=== PATIENT | female | born 1960 | race African-American/Black ===

== ENCOUNTER 2024-07-07 14:50 | Outpatient (CLI) | payer OTHER, BC, SELFPAY ==
--- NOTE | ~2024-07-07 | US_ITS ---
EXAMINATION: US thyroid DATE: 07/07/2024 15:44 INDICATION: Goiter. TECHNIQUE: Multiple ultrasound images of the thyroid were obtained. COMPARISON: None. FINDINGS: The right thyroid lobe measures 1.5 x 1.8 x 4.9 cm. The left thyroid lobe measures 1.5 x 1.8 x 5.3 c m. In the right thyroid lobe, there is a 10 mm predominantly solid, hypoechoic, wider than tall nodu le with irregular margin and punctate echogenic foci (TI-RADS TR5). The left thyroid lobe, there is a 5 mm mixed cystic and solid, hypoechoic nodule with smooth margin without echogenic foci (TR3). In t he left thyroid lobe, there is a 4 mm nodule. IMPRESSION: 1. Thyroid nodules. Ultrasound-guided fine-needle aspiration of the 10 mm right thyroid nodule is rec ommended. Reviewed, dictated and finalized at location A. STAPLER IMPRESSION: 1. Thyroid nodules. Ultrasound-guided fine-needle aspiration of the 10 mm right thyroid nodule is recommended.
--- OUTSIDE RECORDS SUMMARY | 2024-07-10 23:38 | XMS_ITS | CONTINUITY OF CARE DOCUMENT ---
Author Name richmond fragoso Address Unknown Organization [facility] Address [address] [address] [place] [address] Phone [phone] Care Team Providers Care Form Presser Name Role Phone Pawel Mendiola MD Unavailable [phone] LES HASSAN, SEBAS Unavailable Peterson Cardenas MD Unavailable INSURANCE PROVIDERS Payer name Policy type / Coverage type [employer] democr[employer] ID [facility] [employer] [facility] [id number] [facility] [id number] Other [id number]
== END 2024-07-07 14:51 | disposition home or self-care (01) ==
PROVIDERS: PCP Internal Medicine; Visit Provider Internal Medicine
DX: E04.2 Nontoxic multinodular goiter (principal)
CPT/HCPCS: 76536

== ENCOUNTER 2024-07-18 09:14 | Outpatient (CLI) | payer OTHER, BC, SELFPAY ==
--- NOTE | ~2024-07-18 | MM_ITS ---
EXAMINATION: MM screening devorah BI w gregory HISTORY: New baseline lower or TECHNIQUE: Craniocaudal and mediolateral oblique 3-D tomosynthesis images were obtained and synthetic 2-D images were generated. CAD analysis was submitted and interpreted. COMPARISON: No prior mammogram is available for comparison at this institution. BREAST PARENCHYMAL COMPOSITION: The breasts are heterogeneously dense, which may obscure small masses . FINDINGS: A 9 mm asymmetry is identified within the upper inner right breast for which spot compressi on followed by ultrasound is recommended. Stable parenchymal pattern without suspicious microcalcifications, architectural distortion, discrete masses or significant asymmetry. IMPRESSION: A 9 mm asymmetry is identified within the upper inner right breast for which spot compression followe d by ultrasound is recommended. BI-RADS Category 0: Incomplete, additional imaging is needed. Reviewed, dictated and finalized at location A. BOARD DESIGNER IMPRESSION: A 9 mm asymmetry is identified within the upper inner right breast for which sp ot compression followed by ultrasound is recommended. BI-RADS Category 0: Incomplete, additional imaging is needed.
== END 2024-07-18 09:15 | disposition home or self-care (01) ==
LOC: MICIMG 09:14
PROVIDERS: PCP Internal Medicine; Visit Provider Internal Medicine
DX: Z12.31 Encounter for screening mammogram for malignant neoplasm of breast (principal)
CPT/HCPCS: 77063; 77067

== ENCOUNTER 2024-09-08 16:55 | Outpatient (CLI) | payer OTHER, BC, SELFPAY ==
--- NOTE | ~2024-09-08 | XR_ITS ---
CHEST RADIOGRAPH, PA AND LATERAL CLINICAL HISTORY: Chest pain . COMPARISON: none TECHNIQUE: PA and lateral views of the chest. FINDINGS The cardiomediastinal silhouette is unremarkable. The lungs are clear. Visualized osseous structures and soft tissues are unremarkable. IMPRESSION: No focal infiltrate or effusion. Reviewed, dictated and finalized at location A. ER [employer]PER[employer]OR
--- OUTSIDE RECORDS SUMMARY | 2024-09-08 17:00 | XMS_ITS | Data Portability ---
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 Plan of Treatment Reminders Order Date Submit Date Provider Last Modified By Organization Details Last Modified Time Details Appointments Any 15 2024 08:00A M Tadeo Cardenas MD Not available Not available Not available Lab glycohemo globin, total, blood [address], [address] [place] [address], [address], 03/28/2024 09:25:03 BMP, serum or plasma [address], [address] [place] [address], [address], 03/28/2024 09:25:03 lipid panel, serum [address], [address] [place], [address], 03/28/2024 09:25:04 vitamin D, 25-hydrox y, total, serum [address], [address] [place] [address], [address], 10/21/2023 08:22:55 CMP, serum or plasma [address], [address] [place] [address], [address], 10/21/2023 08:22:55 CBC w/ auto diff [address], [address] [place], [address], 10/21/2023 08:22:56 lipid panel, serum [address], [address] [place], [address], 10/21/2023 08:22:55 Referral None recorded. Procedures fine needle aspiratio n, ultrasoun d guided, thyroid (PROC) 2024 025 [facility], [address], [facility] [address], [place], [address], 08/21/2024 12:30:41 Surgeries None recorded. Imaging US, thyroid - Please call patient to schedule. 2023 024 [email or web address] [facility], [address], [place], [address], 07/04/2024 10:27:47 MAMMO, screening , bilateral - Please call patient to schedule. 2023 024 [facility] (Mammography) , [address], [place], [address], 07/20/2024 15:53:36 DEXA 2023 024 [email or web address] [facility] (Imaging), [address], [place], [address], 08/29/2024 15:35:54 Medication Orders omeprazol e 40 mg capsule,d elayed release 2023 024 [email or web address] [facility], [address] [facility], [place], [address], 02/18/2024 13:50:51 hydrochlo rothiazid e 25 mg tablet 2023 024 [email or web address] [facility], [address] [place] [address], [address], 02/18/2024 13:50:51 losartan 50 mg tablet 2023 024 [email or web address] [facility], [address] [place] [address], [address], 02/18/2024 13:50:51 hydrochlo rothiazid e 25 mg tablet 2023 024 CORTEZ [facility], [address] [place] [address], [address], 10/07/2023 16:46:23 Patient TargetsNo targets recorded. Patient Instructions Encounter Date Encounter Id Patient Instructions Last Modified By Organization Details Last Modified Time 06/13/2024 [id number] risk assessment* [email or web address] Not availabl e 06/13/2024 12:41:51 INFLUENZA VACCIN E TD/TDAP PNEUMONIA VACCINE SHINGLES Ordered Recommend ed today, patient declined Patient will get at local pharmacy/health department MAMMOGRAM: Last Mammogram_ 04/2023 No screening necessary patient is up to date DEXA SCAN No screening necessary patient is up to date CERVICAL SCREENING/PELVIC EXAMINATION COLORECTAL SCREENING: Last Colonoscopy 02/2014 DEPRESSION SCREENING Negative BMI Overweight Approp riate Continue healthy eating & exercise NUTRITION Continue healthy eating & exercise PHYSICAL ACTIVITY Appropriate physical activity minimum of 10-20 minutes of activity that causes mild breathlessness/da y VISION No Eye exam necessary ALCOHOL USE No alcohol use Occasional/So cial Use TOBACCO USE non smoker LUNG CANCER SCREENING Non Smoker-not indicated SEXUALLY ACTIVE HEPATITIS C SCREENING Not indicated GLUCOSE SCREENING Ordered Not needed LIPID SCREENING Ordered Not needed [email or web address] Not available 06/13/2024 11:41:06 Reason for Referral None Reported. Results Created Date Observation Date Name Description Value Unit Range Abnormal Flag Note LastModifiedBy Organization Detail LastModifiedTime 10/21/19 24 10/21/2023 VITAM IN D 25-HY DROXY [id number] 51.1 NG/mL 30-100 Vitam in D Statu s: Defic ient: <20 ng/mL Insuf ficie nt: 20-29 ng/mL Suffi cient : 30-10 0 ng/mL Not Available [facility] (Lab) [address] [place], [address], 10/21/2023 21:52:02 10/21/19 24 10/21/2023 COMPR EHENS BRITTANI METAB OLIC PANEL sodium 143 mmol/ L 137-14 5 Not Available [facility] (Lab) [address] [place], [address], 10/21/2023 22:10:54 10/21/19 24 10/21/2023 COMPR EHENS BRITTANI METAB OLIC PANEL potassium 4.1 mmol/ L 3.5-5. 1 Not Available [facility] (Lab) [address] [place], [address], 10/21/2023 22:10:54 10/21/19 24 10/21/2023 COMPR EHENS BRITTANI METAB OLIC PANEL chloride 107 mmol/ L 98-107 Not Available [facility] (Lab) [address] [place], [address], 10/21/2023 22:10:54 10/21/19 24 10/21/2023 COMPR EHENS BRITTANI METAB OLIC PANEL carbon dioxide 31 mmol/ L 22-30 high Not Available [facility] (Lab) [address] [place], [address], 10/21/2023 22:10:54 10/21/19 24 10/21/2023 COMPR EHENS BRITTNAI METAB OLIC PANEL anion gap 9.1 mmol/ L 14-22 low Not Available [facility] (Lab) [address] [place], [address], 10/21/2023 22:10:54 10/21/19 24 10/21/2023 COMPR EHENS BRITTANI METAB OLIC PANEL glucose 105 mg/dL 70-99 high Not Available [facility] (Lab) [address] [place], [address], 10/21/2023 22:10:54 10/21/19 24 10/21/2023 COMPR EHENS BRITTANI METAB OLIC PANEL BUN 19 mg/dL 8-19 Not Available [facility] (Lab) [address] [place], [address], 10/21/2023 22:10:54 10/21/19 24 10/21/2023 COMPR EHENS BRITTANI METAB OLIC PANEL creatinine 1.01 mg/dL 0.66-1 .25 Not Available [facility] (Lab) [address] [facility] [place], [address], 10/21/2023 22:10:54 10/21/19 24 10/21/2023 COMPR EHENS BRITTANI METAB OLIC PANEL GFR >60 Refer ence Range : [place] ge GFR Healt hy Adult : >60 mL/mi n/1.7 3 m2 Chron ic Kidne y Disea se: 15-60 mL/mi n/1.7 3 m2 Kidne y Failu re: <15/m L/min /1.73 m2 www.n iddk. nih.g ov The MDRD study equat ion has not been valid ated in child nicho <18 years of age; pregn ant women ; the elder ly >85 years of age; or in some racia l or ethni c subgr oups, such as [facility] nics. Outsi de the valid ated matt eters , estim ated GFR is less accur ate, requi ring clini tal judgm ent on a case- by-ca se basis . Clini tal inter preta tion for other races and ages must be made by the clini anjel. The MDRD study equat ion has not been valid ated for the evalu ation of serum creat inine relat ed to nutri shirlene l statu s or medic ation usage . For perso ns <18 years of age, a pedia tric GFR calcu lator is avail able on the F websi te: https ://rosalba w.dequan delarosa.o rg/pr ofess ional s/kdo qi/gf r_cal culat or Not Available [facility] (Lab) [address] [place], [address], 10/21/2023 22:10:54 10/21/19 24 10/21/2023 COMPR EHENS BRITTANI METAB OLIC PANEL alkaline phosphatase 91 U/L 38-126 Not Available [facility] (Lab) [address] [place], [address], 10/21/2023 22:10:54 10/21/19 24 10/21/2023 COMPR EHENS BRITTANI METAB OLIC PANEL alanine aminotransfe rase 24 U/L 0-35 Not Available [facility] (Lab) [address] [place], [address], 10/21/2023 22:10:54 10/21/19 24 10/21/2023 COMPR EHENS BRITTANI METAB OLIC PANEL aspartate aminotransfe rase 32 U/L 15-37 Not Available [facility] (Lab) [address] [place], [address], 10/21/2023 22:10:54 10/21/19 24 10/21/2023 COMPR EHENS BRITTANI METAB OLIC PANEL bilirubin, total 0.40 mg/dL 0.20-1 .30 Not Available [facility] (Lab) [address] [place], [address], 10/21/2023 22:10:54 10/21/19 24 10/21/2023 COMPR EHENS BRITTANI METAB OLIC PANEL calcium 9.5 mg/dL 8.4-10 .2 Not Available [facility] (Lab) [address] [place], [address], 10/21/2023 22:10:54 10/21/19 24 10/21/2023 COMPR EHENS BRITTANI METAB OLIC PANEL total protein 7.0 g/dL 6.3-8. 2 Not Available [facility] (Lab) [address] [place], [address], 10/21/2023 22:10:54 10/21/19 24 10/21/2023 COMPR EHENS BRITTANI METAB OLIC PANEL albumin 4.2 g/dL 3.4-5. 0 Not Available [facility] (Lab) [address] [place], [address], 10/21/2023 22:10:54 10/21/19 24 10/21/2023 COMPR EHENS BRITTANI METAB OLIC PANEL globulin 2.8 g/dL 2.6-4. 2 Not Available [facility] (Lab) [address] [place], [address], 10/21/2023 22:10:54 10/21/19 24 10/21/2023 COMPR EHENS BRITTANI METAB OLIC PANEL A/G ratio 1.5 ratio 1.0-2. 0 Not Available [facility] (Lab) [address] [place], [address], 10/21/2023 22:10:54 10/21/19 24 10/21/2023 LIPID PANEL cholesterol 240 mg/dL 140-19 9 high [facility] NSUS RECOM MENDA TION FOR ARSENIO STERO L: ADULT CHILD LOW RISK: <200 <170 BORDE RLINE : <200- 239 ----- HIGH RISK: >240 >200 Not Available [facility] (Lab) [address] [place], [address], 10/21/2023 22:11:04 10/21/19 24 10/21/2023 LIPID PANEL triglyceride s 52 mg/dL 0-150 [facility] NSUS REPOR T RECOM MENDA TION FOR TRIGL YCERI ILAN: ADULT CHILD LOW RISK: <150 ----- BODER LINE: 150-1 99 ----- HIGH RISK: >200 ----- Not Available [facility] (Lab) [address] [place], [address], 10/21/2023 22:11:04 10/21/19 24 10/21/2023 LIPID PANEL HDL cholesterol 81 mg/dL 40- Not Available [facility] (Lab) [address] [place], [address], 10/21/2023 22:11:04 10/21/19 24 10/21/2023 LIPID PANEL LDL cholesterol, calculated 149 mg/dL 0-130 high [facility] NSUS REPOR T RECOM MENDA TIONS FOR LDL: ADULT CHILD LOW RISK <130 <110 (OPTI MAL LDL) <100 ----- BORDE RLINE : 130-1 59 ----- HIGH RISK: >160 >130 A TRIGL YCERI DE RESUL T >400 INVAL IDATE S THE CALCU LATIO N FOR LDL FRACT IONAT ION - THE LDL RESUL T WILL NOT BE REPOR EDGARDO. Not Available [facility] (Lab) [address] [place], [address], 10/21/2023 22:11:04 10/21/19 24 10/21/2023 CBC/C OMPLE TE BLD COUNT W/DIF F white blood cells 3.2 x10'3 /uL 4.2-10 .8 low Not Available [facility] (Lab) [address] [place], [address], 10/21/2023 23:39:47 10/21/19 24 10/21/2023 CBC/C OMPLE TE BLD COUNT W/DIF F red blood cells 4.62 x10'6 /uL 3.80-5 .20 Not Available [facility] (Lab) [address] [place], [address], 10/21/2023 23:39:47 10/21/19 24 10/21/2023 CBC/C OMPLE TE BLD COUNT W/DIF F hemoglobin 13.1 g/dL 12.0-1 5.6 Not Available [facility] (Lab) [address] [place], [address], 10/21/2023 23:39:47 10/21/19 24 10/21/2023 CBC/C OMPLE TE BLD COUNT W/DIF F hematocrit 40.4 % 35.7-4 5.7 Not Available [facility] (Lab) [address] [place], [address], 10/21/2023 23:39:47 10/21/19 24 10/21/2023 CBC/C OMPLE TE BLD COUNT W/DIF F mean red cell volume 87.4 fL 82.0-9 9.0 Not Available [facility] (Lab) [address] [place], [address], 10/21/2023 23:39:47 10/21/19 24 10/21/2023 CBC/C OMPLE TE BLD COUNT W/DIF F mean red cell hemoglobin 28.4 pg 27.0-3 3.0 Not Available [facility] (Lab) [address] [place], [address], 10/21/2023 23:39:47 10/21/19 24 10/21/2023 CBC/C OMPLE TE BLD COUNT W/DIF F mean RBC HGB concentratio n 32.4 g/dL 31.0-3 6.0 Not Available [facility] (Lab) [address] [place], [address], 10/21/2023 23:39:47 10/21/19 24 10/21/2023 CBC/C OMPLE TE BLD COUNT W/DIF F red cell distribution width 13.2 % 11.8-1 5.5 Not Available [facility] (Lab) [address] [place], [address], 10/21/2023 23:39:47 10/21/19 24 10/21/2023 CBC/C OMPLE TE BLD COUNT W/DIF F platelets 207 x10'3 /uL 150-40 0 Not Available [facility] (Lab) [address] [place], [address], 10/21/2023 23:39:47 10/21/19 24 10/21/2023 CBC/C OMPLE TE BLD COUNT W/DIF F mean platelet volume 11.5 fL 9.0-12 .4 Not Available [facility] (Lab) [address] [place], [address], 10/21/2023 23:39:47 10/21/19 24 10/21/2023 CBC/C OMPLE TE BLD COUNT W/DIF F neutrophils 32.8 % 39.0-7 2.0 low Not Available [facility] (Lab) [address] [place], [address], 10/21/2023 23:39:47 10/21/19 24 10/21/2023 CBC/C OMPLE TE BLD COUNT W/DIF F lymphocytes 47.8 % 16.0-4 7.0 high Not Available [facility] (Lab) [address] [place], [address], 10/21/2023 23:39:47 10/21/19 24 10/21/2023 CBC/C OMPLE TE BLD COUNT W/DIF F monocytes 11.7 % 5.0-12 .0 Not Available [facility] (Lab) [address] [place], [address], 10/21/2023 23:39:47 10/21/19 24 10/21/2023 CBC/C OMPLE TE BLD COUNT W/DIF F eosinophils 7.1 % 1.0-7. 0 high Not Available [facility] (Lab) [address] [place], [address], 10/21/2023 23:39:47 10/21/19 24 10/21/2023 CBC/C OMPLE TE BLD COUNT W/DIF F basophils 0.3 % 0.0-2. 0 Not Available [facility] (Lab) [address] [place], [address], 10/21/2023 23:39:47 10/21/19 24 10/21/2023 CBC/C OMPLE TE BLD COUNT W/DIF F immature granulocytes 0.3 % 0.00-0 .50 Not Available [facility] (Lab) [address] [place], [address], 10/21/2023 23:39:47 10/21/19 24 10/21/2023 CBC/C OMPLE TE BLD COUNT W/DIF F neutrophils, absolute count 1.06 x10'3 /uL 1.5-8. 0 low Not Available [facility] (Lab) [address] [place], [address], 10/21/2023 23:39:47 10/21/19 24 10/21/2023 CBC/C OMPLE TE BLD COUNT W/DIF F lymphocytes, absolute count 1.55 x10'3 /uL 1.07-3 .43 Not Available [facility] (Lab) [address] [place], [address], 10/21/2023 23:39:47 10/21/19 24 10/21/2023 CBC/C OMPLE TE BLD COUNT W/DIF F monocytes, absolute count 0.38 x10'3 /uL 0.29-0 .99 Not Available [facility] (Lab) [address] [place], [address], 10/21/2023 23:39:47 10/21/19 24 10/21/2023 CBC/C OMPLE TE BLD COUNT W/DIF F eosinophils, absolute count 0.23 x10'3 /uL 0.02-0 .53 Not Available [facility] (Lab) [address] [place], [address], 10/21/2023 23:39:47 10/21/19 24 10/21/2023 CBC/C OMPLE TE BLD COUNT W/DIF F basophils, absolute count 0.01 x10'3 /uL 0.01-0 .08 Not Available [facility] (Lab) [address] [place], [address], 10/21/2023 23:39:47 10/21/19 24 10/21/2023 CBC/C OMPLE TE BLD COUNT W/DIF F immature granulocytes ,absolute 0.01 x10'3 /uL 0.00-0 .05 Not Available [facility] (Lab) [address] [place], [address], 10/21/2023 23:39:47 10/21/19 24 10/21/2023 CBC/C OMPLE TE BLD COUNT W/DIF F nucleated red blood cells 0.0 % -0 Not Available [facility] (Lab) [address] [place], [address], 10/21/2023 23:39:47 10/21/19 24 10/21/2023 CBC/C OMPLE TE BLD COUNT W/DIF F NRBC# 0.00 x10'3 /uL Not Available [facility] (Lab) [address] [place], [address], 10/21/2023 23:39:47 06/08/20 24 06/08/2024 LIPID PANEL cholesterol 212 mg/dL 140-19 9 high [facility] NSUS RECOM MENDA TION FOR ARSENIO STERO L: ADULT CHILD LOW RISK: <200 <170 BORDE RLINE : <200- 239 ----- HIGH RISK: >240 >200 Not Available [facility] (Lab) [address] [place], [address], 06/08/2024 19:49:06 06/08/20 24 06/08/2024 LIPID PANEL triglyceride s 70 mg/dL 0-150 [facility] NSUS REPOR T RECOM MENDA TION FOR TRIGL YCERI ILAN: ADULT CHILD LOW RISK: <150 ----- BODER LINE: 150-1 99 ----- HIGH RISK: >200 ----- Not Available [facility] (Lab) [address] [place], [address], 06/08/2024 19:49:06 06/08/2006/08/2024 LIPID PANEL HDL cholesterol 67 mg/dL 40- Not Available [facility] (Lab) [address] [place], [address], 06/08/2024 19:49:06 06/08/20 24 06/08/2024 LIPID PANEL LDL cholesterol, calculated 131 mg/dL 0-130 high [facility] NSUS REPOR T RECOM MENDA TIONS FOR LDL: ADULT CHILD LOW RISK <130 <110 (OPTI MAL LDL) <100 ----- BORDE RLINE : 130-1 59 ----- HIGH RISK: >160 >130 A TRIGL YCERI DE RESUL T >400 INVAL IDATE S THE CALCU LATIO N FOR LDL FRACT IONAT ION - THE LDL RESUL T WILL NOT BE REPOR EDGARDO. Not Available [facility] (Lab) [address] [place], [address], 06/08/2024 19:49:06 06/08/20 24 06/08/2024 BASIC METAB OLIC PANEL sodium 137 mmol/ L 137-14 5 Not Available [facility] (Lab) [address] [place], [address], 06/08/2024 19:49:16 06/08/2006/08/2024 BASIC METAB OLIC PANEL potassium 4.1 mmol/ L 3.5-5. 1 Not Available [facility] (Lab) [address] [place], [address], 06/08/2024 19:49:16 06/08/2006/08/2024 BASIC METAB OLIC PANEL chloride 103 mmol/ L 98-107 Not Available [facility] (Lab) [address] [place], [address], 06/08/2024 19:49:16 06/08/20 24 06/08/2024 BASIC METAB OLIC PANEL carbon dioxide 31 mmol/ L 22-30 high Not Available [facility] (Lab) [address] [place], [address], 06/08/2024 19:49:16 06/08/20 24 06/08/2024 BASIC METAB OLIC PANEL anion gap 7.1 mmol/ L 14-22 low Not Available [facility] (Lab) [address] [place], [address], 06/08/2024 19:49:16 06/08/20 24 06/08/2024 BASIC METAB OLIC PANEL glucose 90 mg/dL 70-99 Not Available [facility] (Lab) [address] [place], [address], 06/08/2024 19:49:16 06/08/20 24 06/08/2024 BASIC METAB OLIC PANEL BUN 15 mg/dL 8-19 Not Available [facility] (Lab) [address] [place], [address], 06/08/2024 19:49:16 06/08/20 24 06/08/2024 BASIC METAB OLIC PANEL creatinine 1.00 mg/dL 0.66-1 .25 Not Available [facility] (Lab) [address] [place], [address], 06/08/2024 19:49:16 06/08/20 24 06/08/2024 BASIC METAB OLIC PANEL GFR >60 Refer ence Range : [place] ge GFR Healt hy Adult : >60 mL/mi n/1.7 3 m2 Chron ic Kidne y Disea se: 15-60 mL/mi n/1.7 3 m2 Kidne y Failu re: <15/m L/min /1.73 m2 www.n iddk. nih.g ov The MDRD study equat ion has not been valid ated in child nicho <18 years of age; pregn ant women ; the elder ly >85 years of age; or in some racia l or ethni c subgr oups, such as Hispa nics. Outsi de the valid ated matt eters , estim ated GFR is less accur ate, requi ring clini tal judgm ent on a case- by-ca se basis . Clini tal inter preta tion for other races and ages must be made by the clini anjel. The MDRD study equat ion has not been valid ated for the evalu ation of serum creat inine relat ed to nutri shirlene l statu s or medic ation usage . For perso ns <18 years of age, a pedia tric GFR calcu lator is avail able on the F websi te: https ://ww w.kid [place].o rg/pr ofess ional s/kdo qi/gf r_cal culat or Not Available [facility] (Lab) [address] [place], [address], 06/08/2024 19:49:16 06/08/2006/08/2024 BASIC METAB OLIC PANEL calcium 9.9 mg/dL 8.4-10 .2 Not Available [facility] (Lab) [address] [place], [address], 06/08/2024 19:49:16 06/08/20 24 06/08/2024 HEMOG LOBIN A1C HA1C 6.0 % 4.0-6. 0 Diabe erika Scree fermin Crite rm: <5.7% Consi stent with absen ce of diabe erika 5.7-6 .4% Consi stent with incre ased risk for diabe erika (pred iabet es) >OR=6 .5% Consi stent with diabe erika REFER ENCE: Diabe erika Care 2016, 39(Ford ppl.1 ):s13 -s22 Not Available [facility] (Lab) [address] [place], [address], 06/08/2024 19:51:52 07/11/20 24 07/07/2024 US, thyro id No observ ation record ed. [email or web address] [facility] [address], [place], [address], 08/18/2024 16:38:35 07/20/20 24 07/18/2024 MAMMO , scree fermin, bilat eral No observ ation record ed. [email or web address] [facility] [address], [place], [address], 08/18/2024 17:27:47 07/20/20 24 07/18/2024 MAMMO , scree fermin, bilat eral No observ ation record ed. [address] (Mammography) [address], [place], [address], 08/09/2024 10:57:55 08/07/19 25 07/18/2024 MAMMO , scree fermin, bilat eral No observ ation record ed. [email or web address] [facility] [address], [place], [address], 08/18/2024 16:42:40 Result Notes None recorded. Problems Name Problem SNOMED Code Status Onset Date Resolution Date Notes Provider Name and Address Organization Details Recorded Time Menopausal syndrome 875773190 Active Not Available [facility] 3 06:14:41 Cellulitis 033950096 Completed Not Available [facility] 3 06:14:41 Cellulitis and abscess of trunk 216681993 Completed Not Available [facility] 3 06:14:42 Gastroesop hageal reflux disease 916559805 Active 2019 Not Available [facility] 3 06:14:42 Screening mammograph y Completed 202101/28/2022 Not Available [facility] 3 06:14:42 Adult health examinatio n Active 2021 Not Available [facility] 3 06:14:42 Chest pain 00449391 Completed Not Available [facility] 3 06:14:42 Bronchitis 78617264 Completed Not Available [facility] 3 06:14:42 Vitamin D deficiency 37678487 Active Not Available [facility] 3 06:14:42 Goiter 8975560 Active 2021 Not Available [facility] 3 06:14:42 Hyperlipid emia 56929048 Active 2019 Not Available [facility] 3 06:14:42 Essential hypertensi on 10919258 Active 2019 Not Available [facility] 3 06:14:42 Gastroesop hageal reflux disease without esophagiti s 167576564 Active 2023 Tadeo Cardenas MD [address], [address], [place], [address] , [place] [facility] 4 11:54:20 Chest wall pain 239214948 Active 2023 Tadeo Cardenas MD [address], [address], [place], [address] , [place] - [facility] 4 11:58:47 Hyperglyce naresh 46232430 Active 2023 Tadeo Cardenas MD [address], [address], [place], [address] , [place] [employer] - [facility] 4 15:57:34 Thyroid nodule 119721542 Active 2024 Izabel Mejia LPN null, [place] - [facility] 5 10:58:14 Mammograph y abnormal 016270304 Active 2024 Izabel Mejia LPN null, [employer] [facility] 5 11:02:00 Problem Notes None recorded. Procedures Surgical History Date Name Laterality Status Provider Name and Address Organization Details Recorded Time section completed Not Available [facility] 09/23/2022 06:08:21 tonsillectomy completed Not Available [facility] 09/23/2022 06:08:21 cholecystectomy completed Not Available [facility] 09/23/2022 06:08:21 Imaging Results Imaging Date Name Status LastModified by Organiz ation Details LastModified Time 07/07/2024 US, thyroid completed [email or web address] [facility] [address], [address], 08/18/2024 16:38:35 07/18/2024 MAMMO, screening, bilateral completed [email or web address] [facility] [address], [place], [address], 08/18/2024 17:27:47 07/18/2024 MAMMO, screening, bilateral completed [address] (Mammography) [address], [place], [address], 08/09/2024 10:57:55 07/18/2024 MAMMO, screening, bilateral completed [email or web address] [facility] [address], [place], [address], 08/18/2024 16:42:40 Procedure Notes None recorded. Medical Equipment None Reported. Allergies Allergen ID Allergen Name Allergen Category Reaction Reaction Severity Criticality Documentation Date Start Date Code Code System Note Provider Name and Address Organization Details Recorded Time 82388 lisinopri l medicatio n cough Not available Not available 09/23/2022 00232 RxNorm Not Available [facility] 06:20:32 Medications Name Sig Start Date Stop Date Status Note LastModified by Organization Details LastModified Time losartan 50 mg tablet TAKE 1 TABLET DAILY 2024 active Not Available Not Available Not Avai lable lisinopril 20 mg-hydrochl orothiazide 12.5 mg tablet TAKE 1 TABLET BY MOUTH ONCE DAILY active Not Available Not Available No t Available azithromyci n 250 mg tablet Take 2 TABLET EVERY DAY by oral route for 1 day. then 1 tab a day for 4 days active Not Available Not Available No t Available fluoxetine 10 mg tablet Take 1 tablet every day by oral route. 01/03 completed Not Available Not Available Not Available sulfamethox azole 800 mg-trimetho prim 160 mg tablet TAKE 1 TABLET BY MOUTH EVERY 12 HOURS FOR 7 DAYS 09/22 completed Not Available Not Available Not Available omeprazole 40 mg capsule,del ayed release Take 1 capsule every day by oral route as needed for 30 days. active Not Available Not Available No t Available hydrocortis one acetate 25 mg rectal suppository 01/08 completed Not Available Not Available Not Available oxycodone-a cetaminophe n 5 mg-325 mg tablet 05/11 completed Not Available Not Available Not Available ofloxacin 0.3 % ear drops INSTILL 10 DROPS INTO AFFECTED EAR(S) BY OTIC ROUTE ONCE DAILY active Not Available Not Available No t Available cephalexin 500 mg capsule 01/08 completed Not Available Not Available Not Available aspirin 81 mg chewable tablet CHEW AND SWALLOW 1 TABLET BY MOUTH EVERY DAY active Not Available Not Available No t Available hydrochloro thiazide 25 mg tablet TAKE 1 TABLET BY MOUTH DAILY IN THE MORNING active Not Available Not Available No t Available ibuprofen 600 mg tablet 01/08 completed Not Available Not Available Not Available Vitamin D2 1,250 mcg (50,000 unit) capsule Take 1 capsule every week by oral route for 90 days. 03/09 completed Not Available Not Available Not Available Vitamin B-12 1,000 mcg tablet Take 1 tablet every day by oral route. 2018 active Not Available Not Available Not Avai lable Pneumovax-2 3 25 mcg/0.5 mL injection syringe ADM 0.5ML IM UTD active Not Available Not Available No t Available Vitamin D3 25 mcg (1,000 unit) capsule Take 1 capsule every day by oral route. 2018 active Not Available Not Available Not Avai lable Boostrix Tdap 2.5 Lf unit-8 mcg-5 Lf/0.5 mL intramuscul ar syringe ADM 0.5ML IM UTD active Not Available Not Available No t Available Vitamin B1 03/09 completed Not Available Not Available Not Available ProAir HFA 90 mcg/actuati on aerosol inhaler Inhale 2 puffs every 4 hours by inhalatio n route as needed. active Not Available Not Available No t Available Fluvirin 4734-3899 45 mcg (15 mcg x 3)/0.5 mL intramuscul ar suspension active Not Available Not Available N ot Available Fluvirin 8189-7724 45 mcg (15 mcg x 3)/0.5 mL intramuscul ar suspension ADM 0.5ML IM UTD active Not Available Not Available No t Available Fluvirin (PF) 45 mcg (15 mcg x 3)/0.5 mL intramuscul ar syringe ADM 0.5ML IM UTD 01/03 completed Not Available Not Available Not Available Anusol-HC 2.5 % topical cream APPLY A THIN LAYER TO THE AFFECTED AREA(S) BY TOPICAL ROUTE 3 TIMES PER DAY 01/03 completed Not Available Not Available Not Available Proctosol HC 2.5 % topical cream perineal applicator 01/03 completed Not Available Not Available Not Available Fluvirin (PF) 45 mcg(15 mcg x3)/0.5 mL intramuscul ar syringe ADM 0.5ML IM UTD 03/09 completed Not Available Not Available Not Available Fluarix Quad (PF) 60 mcg (15 mcg x 4)/0.5 mL IM syringe ADM 0.5ML IM UTD 03/09 completed Not Available Not Available Not Available ID NOW COVID-19 Test Kit USE DIRECTED 03/17 completed Not Available Not Available Not Available Vitals Date Recorded Body height Body mass index (BMI) Body weight Body temperature Heart rate Oxygen saturation Oxygen saturation in Arterial blood by Pulse oximetry Systolic blood pressure Diastolic blood pressure Provider Name and Address Organization Details Last Updated DateTime 4 162.56 cm 25.7 kg/m2 84847.8 6 g 98.4 [degF] 81 /min 99 % 99 % 112 mm[Hg] 68 mm[Hg] Citlaly palumbo CMA [place] [facility] [employer] 4 16:17:15 Date Recorded Body height Body mass index (BMI) Body weight Heart rate Oxygen saturation Oxygen saturation in Arterial blood by Pulse oximetry Systolic blood pressure Diastolic blood pressure Provider Name and Address Organization Details Last Updated DateTime 4 162.56 cm 26.2 kg/m2 72665.5 5 g 63 /min 99 % 99 % 124 mm[Hg] 70 mm[Hg] GIL Bennett [employer] [facility] [employer] [facility] 4 11:34:20 Date Recorded Body height Body mass index (BMI) Body weight Body temperature Heart rate Oxygen saturation Oxygen saturation in Arterial blood by Pulse oximetry Systolic blood pressure Diastolic blood pressure Provider Name and Address Organization Details Last Updated DateTime 4 162.56 cm 26.2 kg/m2 97325.5 5 g 98.7 [degF] 64 /min 98 % 98 % 122 mm[Hg] 72 mm[Hg] Winifred Camarena [facility] [employer] [facility] 4 15:39:40 Date Recorded Body weight Body temperature Heart rate Oxygen saturation Oxygen saturation in Arterial blood by Pulse oximetry Body mass index (BMI) Body height Systolic blood pressure Diastolic blood pressure Provider Name and Address Organization Details Last Updated DateTime 4 42085.0 4 g 97.4 [degF] 66 /min 98 % 98 % 26.1 kg/m2 162.56 cm 114 mm[Hg] 70 mm[Hg] GIL Diaz [facility] [employer] [facility] 4 09:22:36 Date Recorded Body height Body mass index (BMI) Body weight Body temperature Provider Name and Address Organization Details Last Updated DateTime 08/21/2024 162.56 cm 26.1 kg/m2 91861.76 g 97.8 [degF] Erika Chavez RN [facility] [email or web address] [facility] 08/21/2024 11:40:01 Social History Question Answer Notes LastModified by Organizat ion Details LastModified Time Tobacco Smoking Status Never Smoker Not Available [employer] 09/23/2022 06:08:00 Do You Have An Advance Directive? No [id number] Information not available 09/23/2022 What Is Your Level Of Alcohol Consumption? Occasional MIGRATION.21865 [id number] Information not available 09/23/2022 Do You Wear A Helmet When Biking? No MIGRATION.93258 [id number] Information not available 09/23/2022 What Is Your Level Of Caffeine Consumption? Moderate MIGRATION.11226 32047 Information not available 09/23/2022 In The 14 Days Before Symptom Onset, Have You Had Close Contact With A Laboratory-confi rmed COVID-19 While That Case Was Ill? No MIGRATION.18445 [id number] Information not available 09/23/2022 In The 14 Days Before Symptom Onset, Have You Had Close Contact With A Person Who Is Under Investigation For COVID-19 While That Person Was Ill? No MIGRATION.67868 07119 Information not available 09/23/2022 What Type Of Diet Are You Following? REGULAR MIGRATION.34880 93906 Information not available 09/23/2022 What Is The Highest Grade Or Level Of School You Have Completed Or The Highest Degree You Have Received? 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 3 MIGRATION.89390 10671 Information not available 09/23/2022 Have There Been Any Changes To Your Family Or Social Situation? No MIGRATION.51628 05623 Information not available 09/23/2022 Do You Use Insect Repellent Routinely? Yes MIGRATION.40443 51506 Information not available 09/23/2022 Where [facility] You Live[facility] MIGRATION.98826 41121 Information not available 09/23/2022 Do You Have A Medical Power Of Sailing Master? No MIGRATION.73296 13730 Information not available 09/23/2022 What Was The Date Of Your Most Recent Tobacco Screening? 06/13/2024 [email or web address] Information not available 06/13/2024 Have You Ever Been Counseled For Unhealthy Alcohol Use? No MIGRATION.46193 61212 Information not available 09/23/2022 Do You Have Any Pets? No MIGRATION.51657 13804 Information not available 09/23/2022 What Is Your Relationship Status? MIGRATION.10616 69746 Information not available 09/23/2022 Do You Use Your Seat Belt Or Car Seat Routinely? Yes MIGRATION.28565 48315 Information not available 09/23/2022 Do You Have Smoke And Carbon Monoxide Detectors In Your Home? Yes MIGRATION.46789 45523 Information not available 09/23/2022 Are You Passively Exposed To Smoke? No MIGRATION.68634 06714 Information not available 09/23/2022 Are There Any Smokers In Your House? No MIGRATION.60730 52938 Information not available 09/23/2022 Do You Feel Stressed (tense, Restless, Nervous, Or Anxious, Or Unable To Sleep At Night)? [id number] MIGRATION.74378 93755 Information not available 09/23/2022 Do You Use Any Illicit Or Recreational Drugs? No MIGRATION.12431 47834 Information not available 09/23/2022 Do You Use Sunscreen Routinely? Yes MIGRATION.84485 81470 Information not available 09/23/2022 Has Tobacco Cessation Counseling Been Provided? No MIGRATION.31576 92823 Information not available 09/23/2022 Have You Recently Traveled Abroad? No MIGRATION.56424 61380 Information not available 09/23/2022 Do You Have Any Dietary Restrictions? No MIGRATION.75899 51638 Information not available 09/23/2022 Do You Or Have You Ever Used Any Other Forms Of Tobacco Or Nicotine? No MIGRATION.55284 01440 Information not available 09/23/2022 Sex: Female Functional Status Question Answer Note LastModified by Organizat ion Details LastModified Time What is your exercise level? Moderate rollar skate, walk, run and bike riding MIGRATION.[id number] Information not available 09/23/2022 Mental Status None recorded. Family History Relationship Description Onset Age of this Age Resolved Age Notes LastModified by Organization Details LastModified Time Maternal Grandmother Heart disease MIGRATION.158 [id number] Not available 09/23/2022 06:08:25 Father Essential hypertension MIGRATION.293 [id number] Not available 09/23/2022 06:08:25 Father Diabetes mellitus MIGRATION.006 [id number] Not available 09/23/2022 06:08:25 Mother Essential hypertension MIGRATION.261 [id number] Not available 09/23/2022 06:08:25 Mother Diabetes mellitus border line MIGRATION.634 [id number] Not available 09/23/2022 06:08:25 Sister Essential hypertension MIGRATION.416 [id number] Not available 09/23/2022 06:08:25 Brother Essential hypertension MIGRATION.809 [id number] Not available 09/23/2022 06:08:25 Maternal Uncle Malignant neoplastic disease Prosta te MIGRATION.839 [id number] Not available 09/23/2022 06:08:25 Paternal Aunt Malignant neoplastic disease Breast MIGRATION.975 [id number] Not available 09/23/2022 06:08:25 Maternal Aunt Malignant neoplastic disease Uterin e MIGRATION.307 [id number] Not available 09/23/2022 06:08:25 Notes:SON: THYROID PROBLEM F IRST COUSIN: THYROID CANCER Medical History Condition Response GERD/NAUSEA Y HYPERTENSION Y Gynecological HistoryNo gynecological history recorded. Obstetrics History GPAL:G 0 P 0 0 0 0 Immunizations Vaccine Type Date Status Note Provider Nam e and Address Organization Details Recorded Time COVID-19, mRNA, LNP-S, PF, 100 mcg/0.5mL dose or 50 mcg/0.25mL dose 1 completed Citlaly Cleveland CMA null, [facility] 10/07/2023 16:17:25 COVID-19, mRNA, LNP-S, PF, 100 mcg/0.5mL dose or 50 mcg/0.25mL dose 1 completed Citlaly Cleveland CMA null, [facility] 10/07/2023 16:17:25 Influenza, split virus, trivalent, preservative 6 completed Citlaly Cleveland CMA null, [facility] 10/07/2023 16:17:25 Influenza, high-dose, trivalent, PF 4 completed Citlaly Cleveland CMA null, [facility] 10/07/2023 16:17:25 COVID-19, mRNA, LNP-S, PF, 30 mcg/0.3 mL dose 1 completed Citlaly Cleveland CMA null, [facility] 10/07/2023 16:17:25 Influenza, split virus, quadrivalent, preservative 8 completed Citlaly Cleveland CMA null, [facility] 10/07/2023 16:17:25 Influenza, split virus, quadrivalent, preservative 7 completed Citlaly Cleveland CMA null, [facility] 10/07/2023 16:17:25 Influenza, high-dose, trivalent, PF 5 completed Citlaly Cleveland CMA null, [facility] 10/07/2023 16:17:25 pneumococcal polysaccharide PPV23 5 completed Citlaly Cleveland CMA null, [facility] 10/07/2023 16:17:25 Tdap 5 completed Citlaly Cleveland [employer] null, [facility] 10/07/2023 16:17:25 Influenza, split virus, quadrivalent, PF 2 completed Not Available [facility] 09/23/2022 06:20:25 Past Encounters Encounter ID Performer Location Encounter Start Date Encounter Closed Date Diagnosis/Indication Diagnosis SNOMED-CT Code Diagnosis ICD10 Code Diagnosis Note [id number] [facility] [address] [place] [address] 03/05/2021 00:00:00 03/05/2021 15:25:47 [id number] [facility] [address] [place] [address] 03/17/2021 00:00:00 03/17/2021 10:11:05 [id number] [facility] [address] [facility] [place] [address] 10/01/2021 00:00:00 10/01/2021 10:43:29 [id number] [facility] [place] [id number] [facility] [place] [address] 02/03/2022 00:00:00 02/03/2022 11:24:08 [id number] [facility] [address] [place] [address] 03/23/2022 00:00:00 03/23/2022 10:28:53 [id number] [facility] [address] [facility] [facility] [place] [address] 06/05/2022 00:00:00 06/05/2022 11:58:10 [id number] Tadeo Cardenas MD [facility] [place] [id number] [facility] [place] [address] 10/06/2022 16:25:31 10/06/2022 17:08:18 Essential hypertension 17204573 I10 under control Hyperlipidemia 18852290 E78.5 advised to watch diet Adult heal th examination 688969487 Z00.00 Mammogram, - 04/16Cojay jay cherry, 2014, nl next in 10 yrsDexa- ne umovax- 05/23/2015 FLU- 2018COVID- 09/30/2020 , 10/21/2020 Vitamin D deficiency 347 02644 E55.9 otc Gastroesop hageal reflux disease 850694342 K21.9 meds help as needed Goiter 2498344 E04.9 NEEDS F/U ULTRA SOUND Depression screening 171 401691 Z13.31 neg Body mass index 25-29 - overweight 428469326 Z68.26 [id number] Tadeo Cardenas MD [facility] Internal Med [facility] [address] [facility] [place] [address] 02/05/2023 11:21:16 02/05/2023 11:48:48 Essential hypertension 83734736 I10 under control Hyperlipidemia 65392194 E78.5 advised to keep watching diet, getting better Adult heal th examination 593605289 Z00.00 Mammogram, - 04/16Colono scopy, 2013, nl next in 10 yrsDexa- ne umovax- 05/23/2015 FLU- 2018COVID- 09/30/2020 , 10/21/2020 Vitamin D deficiency 347 17488 E55.9 otc , labs good Gastroesop hageal reflux disease 821961460 K21.9 meds help as needed Goiter 3381092 E04.9 needs ultra sound in a year Screening mammography 24 898073 Z12.31 [id number] Tadeo Cardenas MD [facility] Internal [facility] [address] [facility] [place] [address] 06/09/2023 15:50:44 06/09/2023 16:42:24 Essential hypertension 54297220 I10 under control Hyperlipidemia 83235975 E78.5 advised to keep watching diet, getting better Adult heal th examination 753839872 Z00.00 Mammogram, - 05/05/2023 Colonoscop y, 2013, nl next in 10 yrsDexa- ne umovax- 05/23/2015 [facility]- 09/30/2020 , 10/21/2020 Vitamin D deficiency 347 74133 E55.9 otc , Gastroesop hageal reflux disease 495668217 K21.9 meds help as needed Goiter 2896029 E04.9 needs ultra sound in a year ( 11/16 ) [id number] Tadeo Cardenas MD [facility] Internal [facility] [address] [facility] [place] [address] 10/07/2023 15:50:53 10/07/2023 17:02:32 Essential hypertension 69422849 I10 under control Hyperlipidemia 37506064 E78.5 advised to keep watching diet, getting better Adult heal th examination 462280385 Z00.00 Mammogram, - 05/05/2023 Colonoscop y, 2013, nl next in 10 yrsDexa- 2Pne umovax- 05/23/2015 [facility]- 09/30/2020 , 10/21/2020 Vitamin D deficiency 347 62025 E55.9 otc , Gastroesop hageal reflux disease 791730278 K21.9 meds help as needed Goiter 0414796 E04.9 needs ultra sound next time [id number] Tadeo Cardenas MD [facility] Internal [address] [facility] [place] [address] 01/20/2024 11:26:55 01/20/2024 11:59:27 Gastroesophageal reflux disease without esophagitis 006966113 K21.9 KEEP TAKING OMEPRAZOLE Chest wall pain 58252874 6 R07.89 discussed that if pain changes, then call us [id number] Tadeo Cardenas MD [facility] Internal [address] [facility] [place] [address] 02/17/2024 15:29:55 02/17/2024 16:02:55 Essential hypertension 23489843 I10 under control Hyperlipidemia 61629052 E78.5 advised to keep watching diet, labs next time Adult heal th examination 260894970 Z00.00 Mammogram, - 05/05/2023 Colonoscop y, 2013, nl next in 10 yrsDexa- 2Pne umovax- 05/23/2015 [facility]- 09/30/2020 , 10/21/2020 Vitamin D deficiency 347 60001 E55.9 otc , Gastroesop hageal reflux disease 108035043 K21.9 meds help as needed Goiter 2672510 E04.9 needs ultra sound next time Hyperglycemia 56724019 R 73.9 watching diet [id number] Tadeo Cardenas MD [facility] [address] [place] [address] 06/13/2024 09:08:38 06/13/2024 10:11:45 Essential hypertension 38886239 I10 under control Hyperlipidemia 44215990 E78.5 getting better without meds Adult heal th examination 916455092 Z00.00 Mammogram, - 05/05/2023 Colonoscop y, 2014, nl, now due, wants to waitDexa- ne umovax- 05/23/2015 , 05/18/24FL U- 05/18/24 (reginas )COVID- 09/30/2020 , 10/21/2020 Vitamin D deficiency 347 09233 E55.9 otc , Gastroesop hageal reflux disease 916301514 K21.9 meds help Goiter 9877888 E04.9 needs ultra sound Hyperglycemia 13834393 R 73.9 watching diet Screening mammography 24 802657 Z12.31 Screening for osteoporosis 847662269 Z13.820 Depression screening 171 607089 Z13.31 neg Normal bod y mass index 94848254 Z68.26 [id number] Pj Hardy MD [facility] E[facility] [place] [address] [place] [address] 08/21/2024 11:29:26 08/22/2024 11:08:04 Thyroid nodule 388998549 E04.1 Health Concerns Section Related Observation LastModified by Organization Detai ls LastModified Time None Recorded Concern Status LastModified by Organization Details LastModified Time None Recorded Advance Directives Directive N: Payers Encounter Date Sequence Insurance Name Policy Number Policy Saldaña Covered Member ID Saldaña Member ID Guarantor Name 10/07/2023 1 [employer] HEALTHCARE - CHOICE PLUS [id number] Windy Ross [id number] Windy Ross 10/07/2023 2 [employer] [id number] Matthew Ross [id number] Windy Ross 01/20/2024 1 [employer] HEALTHCARE - CHOICE PLUS [id number] Windy L Ross [id number] Windy Ross 01/20/2024 2 [place] [id number] Matthew Ross [id number] Windy Ross 02/17/2024 1 [facility] - CHOICE PLUS [id number] Windy L Ross [id number] Windy Ross 02/17/2024 2 [place] [id number] Matthew Ross [id number] Windy Ross 06/13/2024 1 [facility] - CHOICE PLUS [id number] Windy L Ross [id number] Windy Ross 06/13/2024 2 [place] [id number] Matthew Ross [id number] Windy Ross 08/21/2024 1 [facility] - CHOICE PLUS [id number] Windy L Ross [id number] Windy Ross 08/21/2024 2 [place] [id number] Matthew Ross [id number] Windy Ross Notes Date Note Type Note Provider Name and Address Organization Details Recorded Time 10/07/2023 text/html here today for routine f/u, compliant to meds, no side effectsHTN- on med, under controlMeds- Losartan 50 mg daily , HCTZ 25 mg daily (needs refill)GERD- prn meds helps,Meds- Omeprazole 40 mg dailyHyperlipidem ia- watching diet,labs 10/14, mildly elevated 211 now 205s/p lap arsenio 2018Thyroid nodule, seen ENT in the past, nodule was small to get biopsy, Had US 11/02/2022 Tadeo Cardenas MD [address] [facility], [facility] [address], [place], [address], [place] [facility] [employer] 10/07/2023 16:48:45 01/20/2024 text/html She is here toda y for acid reflux. Has been taking Omeprazole which does seem to help but recently has been getting a stabbing pain in her chest and just wants to rule out any heart condition.she feels more pain on laying to the side left or rightPAIN GOES AWAY AFTER TAKING OMEPRAZOLE.Recent ly seen Dr. Valdez and was dx- with Cataracts and Glaucoma Taedo Cardenas MD [address], [place], [address], [employer] 01/20/2024 12:00:53 02/17/2024 text/html Here today for routine f/u, compliant to meds, no side effects HTN- on med, under controMeds- Losartan 50 mg daily , HCTZ 25 mg daily (needs refill) GERD- prn meds helps,Meds- Omeprazole 40 mg daily Hyperlipidemia- was 240, watching diet, labs next time Hyperglycemia- was 105, watching diet Hyperlipidemia- watching diet,labs 10/14, mildly elevated 211 now 205s/p lap arsenio 2017 Thyroid nodule, seen ENT in the past, nodule was small to get biopsy, Had US 11/02/2022 Tadeo Cardenas MD [address], [place], [address], [employer] 02/17/2024 16:01:13 06/13/2024 text/html Here today for routine f/u, compliant to meds, no side effects PT IS FASTING ( [facility] ) HTN- on med, under controlMeds- Losartan 50 mg daily , HCTZ 25 mg daily GERD- needs meds dailyMeds- Omeprazole 40 mg daily Hyperlipidemia- was 240, NOW 212 watching diet, Hyperglycemia- was 105, NOW 90 watching diet s/p lap arsenio 2017 Thyroid nodule, seen ENT in the past, nodule was small to get biopsy, Had US 11/02/2022 Tadeo Cardenas MD [address], [place], [address], [employer] 06/13/2024 12:42:07 08/21/2024 text/html this patient has history of a thyroid nodules and her most recent ultrasound revealed a TI-RADS 5 1 cm nodule on the right side Pj Hardy MD [address], [place], [address], [employer] 08/21/2024 11:59:56 OBGyn Episode No OBEpisode recorded.
== END 2024-09-08 16:56 | disposition home or self-care (01) ==
PROVIDERS: PCP Internal Medicine; Visit Provider Internal Medicine Cardiovascular Disease
DX: R07.9 Chest pain, unspecified (principal)
CPT/HCPCS: 71046

== ENCOUNTER 2024-10-02 12:42 | Outpatient (CLI) | payer OTHER, BC, SELFPAY ==
--- NOTE | ~2024-10-02 | US_ITS ---
EXAMINATION: US THYROID BIOPSY DATE: 10/02/2024 16:43 CDT INDICATION: TIRADs 5 nodule within the right lobe of the thyroid gland TECHNIQUE: The procedure for biopsy of the thyroid nodule and its benefits and risks were explained to the patie nt. Potential risk included were not limited to bleeding, infection, and nondiagnostic specimen. The neck was prepped and draped in the usual sterile manner. 8cc 1% lidocaine was used for local ane sthesia. [6 passes were made with a 25G needle into the right-sided thyroid lesion. Appropriate nee dle location was documented with continuous sonographic guidance. The specimens were passed to the c ytopathologist in the room. All needles were removed and a sterile bandage applied over the biopsy site. The patient tolerated t he procedure without immediate complications or complaints. FINDINGS: Subsequent images demonstrate needles advanced into the lesion for biopsy. IMPRESSION: 1. Successful ultrasound guided biopsy of TIRADS 5 thyroid nodule. Please refer to pathology report for final histologic analysis. Reviewed, dictated and finalized at location A. IMPRESSION: 1. Successful ultrasound guided biopsy of TIRADS 5 thyroid nodule. Please ref er to pathology report for final histologic analysis.
--- OUTSIDE RECORDS SUMMARY | 2024-10-02 14:31 | XMS_ITS | CONTINUITY OF CARE DOCUMENT ---
Author Name richmond fragoso Address Unknown Organization [facility] Address [address] [place] [address] Phone [phone] Care Team Providers Care Facilities Mechanical Design Engineer Name Role Phone Marlena HASSAN, Pawel Unavailable [phone] SEBAS SALDANA MD Unavailable [phone] Peterson Cardenas MD Unavailable PROBLEMS Condition Status Date Provider Notes PREDIABETES; active Pawel Mendiola MD Screening active Pawel Mendiola MD GERD active Pawel Mendiola MD HYPERTENSION active Pawel Mendiola MD Exposure to SARS-associated coronavirus;had vaccine active Pawel Mendiola MD Palpitations active Pawel Mendiola MD Chest pain-type to be determined active Hero Mendiola MD pos stress test zero tal Overweight active Pawel Mendiola MD Hypercholesterolemia active Pawel Gray ENCOUNTERS Date Type Provider Location Encounter Diag nosis - In-person encounter Office Visit Pawel Mendiola MD [facility] GERDHYPERTENSIONExposure to SARS-associa shira coronavirus;had vaccinePalpitationsChest pain-type to be determinedOverweightHypercholesterolemia VITAL SIGNS Date Observation Value Provider weight E&M 151 [lb_av] Rosa Batista Body Mass Index (Ratio) 25.92 kg/m2 Serjio Mendiola MD blood pressure, diastolic 96 mm[Hg] An iyah Lang blood pressure, systolic 155 mm[Hg] Dali Lang oxygen saturation, oximetry 98 % Ronda Lang pulse rate 61 /min Ronda Lang respiratory rate E&M 12 /min Ronda Lang weight E&M 151 [lb_av] Ronda Lang height E&M 64 [in_i] Ronda Lang blood pressure, cuff size regular Roseann Lang ALLERGIES No Known Drug Allergies RESULTS Date Observation Value Provider Reference Range Interpretation Location microalbumin/crea tinine ratio, urine 5 MG/G CREAT [facility] <30 Normal microalbumin/tota l urine volume 4 mg/L [facility] Units converted. See lab report for original value. Normal creatinine, random, urine 82 mg/dL [facility] [id number] Normal HISTORY OF MEDICATION USE Medication Status Instructions Dates Provider Indications Com ments aspirin 81 mg tablet,chewable active CHEW AND SWALLOW 1 TABLET BY MOUTH EVERY DAY Pawel Mendiola MD omeprazole 40 mg capsule,delayed release(DR/EC) active Ronda Lang losartan 50 mg tablet active Dali Lang hydrochlorothiazide 25 mg tablet active Ronda Lang Caltrate Gummy Bites completed - Pawel Mendiola MD INSURANCE PROVIDERS Payer name Policy type / Coverage type [place] red democrat ID [facility] [id number] [facility] [id number] Other [id number] ADVANCE DIRECTIVES Name Date DISCUSSED - NO DECISION MADE TREATMENT PLAN Date Name Performer :eggr and and uacr Pawel Mendiola MD :6 Pawel Mendiola MD :neg egfr Pawel Mendiola MD Cardiology Pawel Mendiola MD Cardiology Pawel Mendiola MD Cardiology Pawel Mendiola MD Cardiology Pawel Mendiola MD Cardiology Pawel Mendiola MD Cardiology Pawel Mendiola MD Cardiology Pawel Mendiola MD Date Name RPM (remote patient monitoring) CXR- PA/Lat Microalb/Creatinine Urine, Random Stress Routine Monitor - Telemetry (Mobile Cardiac) Complete Echo CT, Coronary Calcium Score HISTORY OF PROCEDURES Procedure Date Procedure Name Provider Procedure Notes S tatus CT- Coronary CA score Pawel Mendiola MD completed CT- Coronary CA score Pawel Mendiola MD completed EKG Pawel Mendiola MD complete d
== END 2024-10-02 12:43 | disposition home or self-care (01) ==
PROVIDERS: PCP Internal Medicine; Visit Provider Otolaryngology
DX: E04.1 Nontoxic single thyroid nodule (principal)
CPT/HCPCS: 10005; 88172; 88173; 88305

== ENCOUNTER 2025-01-01 09:41 | Outpatient (CLI) | payer OTHER, BC, SELFPAY ==
--- NOTE | ~2025-01-01 | DEXA_ITS ---
Bone Density Report Name: MAYE DE LA GARZA Age: 64 Sex: Female Ethnicity: Black Date of : 1960 Indication: postmenopausal; screening for osteoporosis; Referring Provider: HANNAH, TADEO Beckman Study: Bone densitometry was performed. Exam Date: January 01, 2025 Accession number: [id number] Bone Density: Region BMD T-score Z-score Classification AP Spine(L1-L4) 1.026 -0.2 0.6 Normal Femoral Neck (Left) 0.820 -0.3 0.2 Normal Total Hip (Left) 0.951 0.1 0.4 Normal Femoral Neck (Right) 0.872 0.2 0.6 Normal Total Hip (Right) 0.953 0.1 0.4 Normal Total Hip Mean 0.952 0.1 0.4 Normal World Health Organization criteria for BMD impression classify patients as: Normal (T-score at or above -1.0), Osteopenia (T-score between -1.0 and -2.5), or Osteoporosis (T-score at or below -2.5). 10-year Fracture Risk: FRAX not reported because: All T-scores for Spine Total, Hip Total, Femoral Neck at or above -1.0 Clinical Information Provided by Patient: Has used the following medications: Vitamin D Patient maximum height was 64 Menopause Age: 47 Drinks caffeinated beverages Onset of menses at age 18 Number of children 3 Impression: The patient has normal bone mass. Discussion: BONE DENSITY IS ABOVE THE MINIMUM DESIRABLE LEVEL AT ALL SKELETAL SITES TESTED. This patient?s bone mineral density is above the minimum desirable level (T-score -1.0 or better) at all sites measured. The patient should follow a healthful lifestyle (good nutrition with adequate calcium and vitamin D, and appropriate weight-bearing exercise). Follow-Up: Consider repeating this study in 5 years or sooner if there is some new clinical indication. Reported by: BILL on 01/01/2025 10:23:00 AM. Reviewed, dictated and finalized at location A.
== END 2025-01-01 09:42 | disposition home or self-care (01) ==
PROVIDERS: Visit Provider Internal Medicine
DX: Z78.0 Asymptomatic menopausal state (principal)
CPT/HCPCS: 77080